=== PATIENT | male | born 1970 | race Caucasian/White ===

== ENCOUNTER 2016-11-30 04:52 | Emergency (ER) | payer OTHER ==
[2016-11-30] MEDS ORDERED: Adenosine 6 MG/2 ML SDV ONE (05:12)
[2016-11-30] MEDS ORDERED: Adenosine 12 MG/4 ML SDV ONE (05:12)
[2016-11-30] MEDS ORDERED: Sodium Chloride 0.9% 1,000 ML ONE (05:13)
[2016-11-30] MEDS ORDERED: Sodium Chloride 0.9% 10 ML Syringe FLUSH PRN (05:20)
--- NOTE | 2016-11-30 05:52 | EDM.PDOC ---
ED HISTORY OF PRESENT ILLNESS - General Chief Complaint: Respiratory Problem Stated Complaint: SOB FAST HEART BEAT Time Seen by Provider: 11/30/16 05:10 Source of Information: Reports: Patient, RN notes reviewed - History of Present Illness INITIAL COMMENTS - FREE TEXT/NARRATIVE: 46-year-old male comes in with rapid heart rate. Experienced onset of palpitations about 30-45 minutes ago. This awakened him from his sleep. He feels somewhat weak and dizzy with this. Order he was ambulatory into the emergency department. He states he also had this yesterday morning which resolved on its own after about 20-30 minutes. He has had prior episodes of this as well. He is no known history for hypertension diabetes or coronary artery disease. He has not feel short of breath and no chest discomfort other than the sensation of palpitation. - Related Data Allergies/ADRs: Allergies Allergy/AdvReac Type Severity Reaction Status Date / Time No Known Allergies Allergy Verified 11/30/16 05:16 Home Meds: Home Meds Venlafaxine [Effexor XR] 37.5 mg PO DAILY 11/30/16 [History] Past Medical History Cardiovascular History: Reports: Other (see below) Other Cardiovascular History: fast heart rate Respiratory History: Reports: Sleep apnea Other Musculoskeletal History: finger fracture Neurological History: Reports: Headaches, chronic Psychiatric History: Reports: Anxiety - Infectious Disease History Infectious Disease History: Reports: Chicken pox - Past Surgical History GI Surgical History: Reports: Appendectomy, Hernia, inguinal Social & Family History - Tobacco Use Smoking Status *Q: Never Smoker Second Hand Smoke Exposure: Yes - Alcohol Use Days Per Week of Alcohol Use: 7 Number of Drinks Per Day: 1 Total Drinks Per Week: 7 - Recreational Drug Use Recreational Drug Use: No ED ROS GENERAL - Review of Systems Review Of Systems: See Below Constitutional: Reports: fatigue. Denies: fever, chills, diaphoresis HEENT: Reports: No symptoms Respiratory: Denies: shortness of breath Cardiovascular: Reports: Lightheadedness (mild), Palpitations. Denies: Chest pain, Syncope Endocrine: Reports: fatigue GI/Abdominal: Denies: Abdominal pain, Nausea, Vomiting Musculoskeletal: Denies: neck pain, shoulder pain, arm pain, back pain Skin: Reports: no symptoms Neurological: Reports: dizziness (mild). Denies: numbness, tingling ED EXAM, GENERAL - Physical Exam Exam: See Below General Appearance: alert, no apparent distress Eye Exam: bilateral eye: PERRL Throat/Mouth: Normal inspection, Normal oropharynx Head: atraumatic Neck: supple, full range of motion, other (no JVD) Respiratory/Chest: no respiratory distress, lungs clear, normal breath sounds Cardiovascular: tachycardia GI/Abdominal: soft, non tender Extremities: normal inspection, normal range of motion. No: pedal edema, leg pain Neurological: alert, oriented, no motor/sensory deficits Skin Exam: Warm, Dry, Normal color EKG INTERPRETATION EKG Date: 11/30/16 Rhythm: other (SVT) [place]: normal QRS: normal ST-T: elevated (mild ST elevation in V2, T-wave inversions in lead 3 and aVF.) Course - Vital Signs Last Recorded V/S: Last Vital Signs Temp 96.5 F 11/30/16 04:59 Pulse 110 H 11/30/16 04:59 Resp 12 11/30/16 04:59 BP 122/111 H 11/30/16 04:59 Pulse Ox 94 L 11/30/16 04:59 - Orders/Labs/Meds Orders: Active Orders 24 hr Category Date Time Status EKG 12 Lead [EKG Documentation Completion] [RC] STAT Care 11/30/16 05:20 Active EKG Documentation Completion [RC] ASDIRECTED Care 11/30/16 05:05 Active Peripheral IV Care [RC] . DIRECTED Care 11/30/16 05:20 Active Sodium Chloride 0.9% [Saline Flush] Med 11/30/16 05:20 Active 10 ml FLUSH ASDIRECTED PRN Peripheral IV Insertion Adult [OM.PC] Stat Oth 11/30/16 05:20 Ordered Medication Orders Sodium Chloride (Saline Flush) 10 ml FLUSH ASDIRECTED PRN PRN Reason: Keep Vein Open Labs: Laboratory Tests 11/30/16 11/30/16 Range/Units 05:05 05:05 WBC 11.40 H (4.23-9.07) K/mm3 RBC 5.90 (4.63-6.08) M/mm3 Hgb 17.1 (13.7-17.5) gm/L Hct 52.2 H (40.1-51.0) % MCV 88.5 (79.0-92.2) fl MCH 29.0 (25.7-32.2) pg MCHC 32.8 (32.2-35.5) g/dl RDW Std Deviation 44.4 H (35.1-43.9) fL Plt Count 472 H (163-337) K/mm3 MPV 10.2 (9.4-12.3) fl Neut % (Auto) 46.4 (34.0-67.9) % Lymph % (Auto) 42.0 (21.8-53.1) % Andrews % (Auto) 7.3 (5.3-12.2) % Eos % (Auto) 3.5 (0.8-7.0) Baso % (Auto) 0.5 (0.1-1.2) % Neut # 5.29 (1.78-5.38) K/mm3 Lymph # 4.79 H (1.32-3.57) K/mm3 Andrews # 0.83 H (0.30-0.82) K/mm3 Eos # 0.40 (0.04-0.54) K/mm3 Baso # 0.06 (0.01-0.08) K/mm3 Sodium 140 (136-145) mEq/L Potassium 4.4 (3.5-5.1) mEq/L Chloride 104 (98-107) mEq/L Carbon Dioxide 26 (21-32) mEq/L Anion Gap 14.4 (5-15) BUN 11 (7-18) mg/dL Creatinine 1.6 H (0.7-1.3) mg/dL Est Cr Clr Drug Dosing TNP Estimated GFR (MDRD) 47 (>60) mL/min BUN/Creatinine Ratio 6.9 L (14-18) Glucose 108 H (74-106) mg/dL Calcium 8.2 L (8.5-10.1) mg/dL Total Bilirubin 0.7 (0.2-1.0) mg/dL AST 42 H (15-37) U/L ALT 59 (16-63) U/L Alkaline Phosphatase 62 (46-116) U/L Total Protein 7.3 (6.4-8.2) g/dl Albumin 3.7 (3.4-5.0) g/dl Globulin 3.6 gm/dL Albumin/Globulin Ratio 1.0 (1-2) Meds: Medications Generic Name Dose Route Start Last Admin Trade Name Freq PRN Reason Stop Dose Admin Sodium Chloride 10 ml 11/30/16 05:20 Saline Flush FLUSH ASDIRECTED PRN Keep Vein Open Discontinued Medications Generic Name Dose Route Start Last Admin Trade Name Nikki PRN Reason Stop Dose Admin Adenosine Confirm 11/30/16 05:12 Adenocard Administered 11/30/16 05:13 Dose 6 mg .ROUTE .STK-MED ONE Adenosine Confirm 11/30/16 05:12 Adenocard Administered 11/30/16 05:13 Dose 12 mg .ROUTE .STK-MED ONE Sodium Chloride Confirm 11/30/16 05:13 Normal Saline Administered 11/30/16 05:14 Dose 1,000 mls @ as directed .ROUTE .STK-MED ONE Metoprolol Tartrate 50 mg 11/30/16 06:28 Lopressor PO 11/30/16 06:29 ONETIME ONE - Re-Assessments/Exams Free Text/Narrative Re-Assessment/Exam: 11/30/16 05:20.Initial EKG and moniter shows SVT, rate 170's and 180's. I had the patient do a modified valsalva holding his legs up in the air. On the 2nd attempt he converted to sinus rythm with no meds given. He converted to sinus rythm, rate in the 90's. 11/30/16 06:32. labs are as documented. Serum calcium is mildly low 8.2. I was considering putting him on a calcium channel don for rate control and hopefully prevention of somewhat increasingly frequent SVT episodes. with this relatively low serum calcium I am going to rather put him on metoprolol 50 mg twice a day. Will have him followup with Dr. Booker whom he has seen in the past. We'll give him a dose of 50 mg metoprolol now. Discharge instructions as documented Departure - Departure Time of Disposition: 06:34 Disposition: Home, Self-Care 01 Condition: fair Clinical Impression: SVT (supraventricular tachycardia) Forms: ED Department Discharge Additional Instructions: We will start you on metoprolol to try prevent or at least reduce frequency of episodes of rapid heart rate, SVT. We've given you your first dose 50 mg orally while here in the ED. Continue that 50 mg twice daily. Prescription has been sent electronically to [facility] [place]. I recommend following up with Dr. Booker in about 7-10 days for a complete physical and to see how that is working for you. Call [facility] for appointment. If you initially feel weak dizzy or lightheaded when standing sit or lower your head until the dizziness passes. Be sure to drink plenty of water to maintain hydration and that should help reduce potential side effect of dizziness. Over time you should gradually adjust to the medication. keep a log if you do have further episodes of tachycardia. Bring that to the clinic for when you do see Dr. Booker. If you do have a further episode of tachycardia lie flat, do the Valsalva maneuver that we had you do this morning with the legs elevated. You can try that 2 or 3 times. If the tachycardia does not resolve within 20-30 minutes I do recommend coming in to the ED. - My Orders Last 24 Hours: My Active Orders 11/30/16 05:05 EKG Documentation Completion [RC] ASDIRECTED 11/30/16 05:20 EKG 12 Lead [EKG Documentation Completion] [RC] STAT Peripheral IV Care [RC] . DIRECTED Sodium Chloride 0.9% [Saline Flush] 10 ml FLUSH ASDIRECTED PRN Peripheral IV Insertion Adult [OM.PC] Stat - Assessment/Plan Last 24 Hours: My Active Orders 11/30/16 05:05 EKG Documentation Completion [RC] ASDIRECTED 11/30/16 05:20 EKG 12 Lead [EKG Documentation Completion] [RC] STAT Peripheral IV Care [RC] . DIRECTED Sodium Chloride 0.9% [Saline Flush] 10 ml FLUSH ASDIRECTED PRN Peripheral IV Insertion Adult [OM.PC] Stat
[2016-11-30] MEDS ORDERED: Metoprolol Tartrate 50 MG Tab PO ONE (06:28)
[2016-11-30 06:35] VITALS: BP 140/110
== END 2016-11-30 07:04 | disposition home or self-care (01) ==
LOC: JD.ED 04:52
DX: I47.1 Supraventricular tachycardia (principal); G47.30 Sleep apnea, unspecified; F41.9 Anxiety disorder, unspecified; Z79.899 Other long term (current) drug therapy; Z90.49 Acquired absence of other specified parts of digestive tract
CPT/HCPCS: 36415; 80053; 85025; 93005; 99285; A9270; 99284